=== PATIENT | female | born 1975 | race African-American/Black ===

== ENCOUNTER 2021-04-23 13:57 | Observation (INO) | payer OTHER ==
[2021-04-23 14:40] LABS: Hemoglobin 5.2 g/dL (12.0-16.0); Mean Corpuscular HGB CONC 28.5 g/dL (32.0-36.0); Mean Corpuscular Hemoglobin 17.4 pg (27.0-31.0); Mean Corpuscular Volume 60.9 fL (78.0-98.0); Mean Platelet Volume 6.3 fL (7.4-10.4); Platelet Count 225 thou/uL (130-400); RBC Distribution Width 21.9 % (11.5-14.5); Red Blood Cell (RBC) Count 3.01 mill/uL (4.20-5.40)
[2021-04-23 14:48] LABS: ALT (SGPT) 10 U/L (8-55); AST (SGOT) 18 U/L (5-34); Albumin 3.9 g/dL (3.5-5.0); Alkaline Phosphatase 64 U/L (40-110); Anion Gap 8 mmol/L (10-20); BUN (Urea Nitrogen) 11 mg/dL (7.0-18.7); Bilirubin, Total 0.3 mg/dL (0.2-1.2); Calc. Creatinine Clearance 0 mL/min (70-130); Calcium 9.2 mg/dL (7.8-10.44); Carbon Dioxide 26 mmol/L (22-29); Chloride 105 mmol/L (98-107); Globulin 3.3 g/dL (2.4-3.5); Glucose 99 mg/dL (70-105); Potassium 4.1 mmol/L (3.5-5.1); Protein, Total 7.2 g/dL (6.0-8.3); Sodium 135 mmol/L (136-145)
[2021-04-23 15:01] LABS: #Lymphocytes 1.6 thou/uL (1.20-3.40); #Monocytes 0.5 thou/uL (0.11-0.59); #Neutrophils 2.9 thou/uL (1.40-6.50); %Basophils 0.8 % (0.0-1.0); %Eosinophils 0.9 % (0.0-10.0); %Lymphocytes 31.2 % (21.0-51.0); %Monocytes 9.1 % (0.0-10.0)
[2021-04-23 15:03] LABS: Anisocytosis MODERATE=16-30 cells (100X) (0-5/hpf); Hypochromia MODERATE=16-30 cells (100X) (0-5/hpf); MDiff Complete? YES; Microcytosis MODERATE=15-30 cells (100X) (0-5/hpf); Ovalocytes SLIGHT = 2-5 cells (100X) (0-1/hpf); Platelet Morphology Comment Appears Adequate; Poikilocytosis SLIGHT = 6-15 cells (100X) (0-5/hpf); Polychromasia MODERATE = 3-4 cells (100X) (0-2/hpf); Reflex for Review?? YES; Target Cells SLIGHT = 2-5 cells (100X) (0-1/hpf); Tear Drops SLIGHT = 2-5 cells (100X) (0-1/hpf)
[2021-04-23 15:11] LABS: INR-International Normal Ratio 1.1; PTT 28.5 sec (22.9-36.1)
[2021-04-23] MEDS ORDERED: Ondansetron ODT 4 MG TAB PO PRN (18:14)
[2021-04-23] MEDS ORDERED: Acetaminophen 325 MG TAB PO PRN (18:14)
[2021-04-23] MEDS ORDERED: Senokot S 8.6-50 MG TAB PO PRN (18:14)
[2021-04-23] MEDS ORDERED: Ondansetron PF 4 MG/2 ML Vial IVP PRN (18:14)
[2021-04-23 19:39] VITALS: BMI 34.0
[2021-04-23 21:57] LABS: Hemoglobin 6.5 g/dL (12.0-16.0)
[2021-04-23] MEDS ORDERED: Iron Sucrose Complex 100 MG in Sodium Chloride 0.9% 100 ML IVPB SCH (22:00)
[2021-04-23] MEDS ORDERED: Iron, Sodium Ferric Gluconate 125 MG in Sodium Chloride 0.9% 100 ML IVPB SCH (22:00)
[2021-04-24 06:24] LABS: Elliptocytes SLIGHT = 2-5 cells (100X) (0-1/hpf); Hemoglobin 7.5 g/dL (12.0-16.0); Hypochromia MODERATE=16-30 cells (100X) (0-5/hpf); Lymphocytes 20 % (21-51); MDiff Complete? YES; Mean Corpuscular Hemoglobin 20.5 pg (27.0-31.0); Mean Corpuscular Volume 68.3 fL (78.0-98.0); Mean Platelet Volume 6.3 fL (7.4-10.4); Monocytes 12 % (0-10); Neutrophil 68 % (42-75); Platelet Count 200 thou/uL (130-400); Platelet Morphology Comment Appears Adequate; Polychromasia SLIGHT = 2-3 cells (100X) (0-2/hpf); RBC Distribution Width 24.9 % (11.5-14.5); Red Blood Cell (RBC) Count 3.63 mill/uL (4.20-5.40); Schistocytes SLIGHT = 2-5 cells (100X) (0-1/hpf); Target Cells SLIGHT = 2-5 cells (100X) (0-1/hpf); Tear Drops SLIGHT = 2-5 cells (100X) (0-1/hpf); White Blood Cell (WBC) Count 6.8 thou/uL (4.8-10.8)
[2021-04-24 06:25] LABS: Anion Gap 12 mmol/L (10-20); BUN (Urea Nitrogen) 8 mg/dL (7.0-18.7); Calc. Creatinine Clearance 118 mL/min (70-130); Calcium 8.8 mg/dL (7.8-10.44); Carbon Dioxide 20 mmol/L (22-29); Chloride 106 mmol/L (98-107); Glucose 79 mg/dL (70-105); Iron 332 ug/dL (50-170); Iron Binding Capacity, Total 323 mcg/dL (265-497); Potassium 4.1 mmol/L (3.5-5.1); Sodium 134 mmol/L (136-145)
[2021-04-24] MEDS ORDERED: Ferrous Sulfate 325 MG TAB PO SCH (08:00)
[2021-04-24] MEDS ORDERED: Iopamidol-370 76% 500 ML 1 ML ONE (10:29)
[2021-04-24 12:34] LABS: Pregnancy Test - Urine (BHCG) Negative (Negative); Pregu Control Background? CLEAR/WHITE (CLR/WHITE); Pregu Control Bar Appear? YES (CONTROL BAR); Specific Gravity 1.013 (1.002-1.036)
[2021-04-24 13:58] LABS: SARS-CoV-2 PCR by NAA Not Detected (NotDetected)
[2021-04-24 14:32] VITALS: BP 152/91; TEMP 98
[2021-04-25] MEDS ORDERED: carBAMazepine 100 mg Chewable Tablet PO SCH (09:00)
== END 2021-04-24 15:20 ==
LOC: ERS 13:57 → EEVIPCON 13:57 → T4-A 16:49
PROVIDERS: ADMIT Family Medicine; ATTEND Hospitalist
DX: D62 Acute posthemorrhagic anemia (principal); N92.0 Excessive and frequent menstruation with regular cycle; N94.89 Other specified conditions associated with female genital organs and menstrual cycle; R60.0 Localized edema; E87.1 Hypo-osmolality and hyponatremia; R56.9 Unspecified convulsions; Z87.891 Personal history of nicotine dependence; Z79.899 Other long term (current) drug therapy; Z20.822 Contact with and (suspected) exposure to COVID-19
CPT/HCPCS: 36415; 36430; 74177; 80048; 80053; 81025; 82728; 83540; 83550; 85025; 85060; 85610; 85730; 86850; 86900; 86901; 93005; J2916; J3490; P9016; Q9967; U0003; U0005